=== PATIENT | female | born 1980 | race Caucasian/White ===

== ENCOUNTER 2022-02-10 12:12 | Emergency (ER) | payer OTHER, SELFPAY ==
--- NOTE | ~2022-02-10 | US_ITS ---
EXAMINATION: US BREAST DIAGNOSTIC, LEFT CLINICAL INFORMATION: 42-year-old female with history of bilateral breast implants placed in 2017. Left breast pain and tenderness. COMPARISON: None TECHNIQUE: Real-time scanning of the entire left breast was performed with scanning of the nipple areolar region. Limited comparison scanning of the right breast was performed. FINDINGS: The left breast parenchymal echotexture appears normal. No periimplant fluid collection is demonstrated. Visualized portions of implant are intact. There is no evidence of suspicious cystic or solid lesion or other significant sonographic finding in the left breast. No increased vascularity is noted in the left breast. Limited evaluation of the right breast is unremarkable. US/US breast LT complete IMPRESSION: No sonographic abnormality is demonstrated in the left breast. Specifically, there is no sonographic evidence of findings suggestive of mastitis or focal fluid collection. The visualized portions of the implant appear intact. ASSESSMENT: BI-RADS 2. Benign findings. RECOMMENDATIONS: Clinical correlation and clinical followup as appropriate. No prior breast imaging studies are available at this institution. Patient should return for mammographic followup as recommended on the report of most recent mammography exam.
--- NOTE | 2022-02-10 12:13 | ECG_ITS ---
Test Reason : CHEST PAIN Blood Pressure : / mmHG Vent. Rate : 063 BPM Atrial Rate : 063 BPM P-R Int : 134 ms QRS Dur : 078 ms QT Int : 426 ms P-R-T Axes : 059 062 031 degrees QTc Int : 435 ms Normal sinus rhythm Normal ECG No previous ECGs available Referred By: Generic ED Physician Electronically Signed By:DELGADO DAVILA
[2022-02-10 12:25] VITALS: BP 106/68; PULSE 67; RESP 16; TEMP 36.3; O2SAT 97; BMI 27.3
--- NOTE | 2022-02-10 13:12 | ED.CHESTPAIN ---
HPI - Chest Pain General Chief Complaint: Chest Pain Stated Complaint: chest pain Time Seen by Provider: 02/10/22 12:44 Source: patient Mode of arrival: ambulatory Limitations: no limitations History of Present Illness HPI narrative: Patient presents emergency department for evaluation of chest pain. She reports last night having substernal chest pain that radiates along the left side of her chest, reports that it is made worse with movement and deep inspiration. She initially thought this was muscular in nature but it feels worse than what she has typically used to, and that is not resolving. She has taken ibuprofen early this morning without relief. She presented to an urgent care for evaluation today, had an EKG and chest x-ray which were normal. She did have significant left-sided breast tenderness on exam therefore she was referred to the emergency department advising that she needed an ultrasound. Patient does report that she has had breast implants initially in late 1999s, with revision in 2015 or 2016. Denies fevers, chills, dizziness, lightheadedness palpitations, shortness of breath, difficulty breathing, nausea, vomiting, abdominal pain, rashes, redness the breast, nipple discharge. Reports at baseline her implants are asymmetric, however she does feel is of the left breast appears more swollen/ full than usual. She reports a maternal history of breast cancer. Denies any personal history of cancer, DVT/PE, recent surgery immobilization. She denies any precipitating injury. She is highly into exercise and fitness, but denies any recent increase or new exercise activity that may have provoked such significant pain. Related Data Allergies Allergy/AdvReac Type Severity Reaction Status Date / Time No Known Allergies Allergy Verified 02/10/22 13:02 Review of Systems Review of Systems: Constitutional : No Weight loss, No Fever, No Chills ENT/Mouth :? No sore throat, No Rhinorrhea Eyes: No Eye Pain, No Swelling Cardiovascular : pos Chest Pain, no SOB, no Dyspnea on Exertion, No Orthopnea, No Edema, No Palpitations Respiratory : No Cough, No Sputum Gastrointestinal : No Nausea, No Vomiting, No Diarrhea, No abdominal Pain, No Hematochezia, No Melena Genitourinary : No Dysuria, No Urinary Frequency Musculoskeletal : No joint pain, No Myalgias, No Joint Swelling Skin : No Skin Lesions, No rash Neuro : No Weakness, No Numbness, No Dizziness, No Headache Psych : No Anxiety/Panic, No Depression Heme/Lymph: No Bruising, No Lymphadenopathy Endocrine : No Polyuria, No Polydipsia Yes all other systems are reviewed and are negative [facility] Past Medical History Attestation statement: The following information was validated with the patient. Source: old records reviewed Social History Social History Advance Directives: No Advance Directives Information Provided: Yes Physical Exam Vital Signs: Vital Signs: Last Vital Signs Temp 97.4 F 02/10/22 12:25 Pulse 67 02/10/22 12:25 Resp 16 02/10/22 12:25 BP 106/68 02/10/22 12:25 Pulse Ox 97 02/10/22 12:25 O2 Del Method 02/10/22 12:25 BMI result Body Mass Index 27.3 Vital signs have been reviewed as normal and appeared to be correct. Blood pressure normal.? Heart rate normal.? Respiration rate normal. Temperature normal.? Oxygen saturation normal. Appearance: Alert.?Oriented to person, place and time. No acute distress.?Normal affect. Eyes: Pupils equal, round and reactive to light.? ENT: Pharynx normal.?? Neck: Normal inspection.? Neck supple.?? CVS: Heart sounds normal. Normal heart rate and rhythm.? Pulses normal.? Chest: Tenderness to palpation over the sternum, and left lateral chest wall. Left lateral breast tenderness palpation at 03:00 o'clock, no palpable lumps. No crepitus Respiratory: No respiratory distress.? Lung sounds clear to auscultation bilaterally?? Abdomen: Soft right upper quadrant tenderness on palpation, negative Lozoya sign. Normoactive bowel sounds. No pulsatile mass.?? Skin: Skin warm and dry.? Normal skin color.? ?? Extremities: No lower extremity edema.? No calf ttp? Neuro: Moves all extremities spontaneously. Sensation intact bilaterally. No motor deficits. Ambulates with normal steady gait. Course Course Course Narrative: Patient is a 42-year-old female with a past medical history bilateral breast implants presented to emergency department today for evaluation of chest pain we will, and chest tenderness. Previously evaluated in urgent care and referred here for further evaluation. She is overall well appearing, vital signs are stable, no apparent distress. Incidental finding of right upper quadrant abdominal tenderness on palpation, by patient's account this may be secondary to recent abdominal exercises, however in addition to her chief complaint of chest pain, at this time concerning for musculoskeletal pain, acid reflux, cholecystitis, cholelithiasis, fracture of breast implant. Less likely ACS has no risk factors however will obtain EKG and troponin. Wells, PERC negative, unlikely PE. Will obtain CBC, CMP, lipase, ultrasound of the left breast, and trial Toradol for pain. Disposition pending results. Reevaluation(s) Reevaluation #1: CBC reveals no leukocytosis, very mild normocytic anemia. CMP is overall unremarkable, very mildly elevated AST at 43, ALT, lipase normal, upper quadrant abdominal tenderness unlikely be secondary to cholecystitis or cholelithiasis, more likely muscular in nature, no reports of pain in this area. Troponin <3.5, EKG reveals normal sinus rhythm no acute ischemic findings, pain unlikely due to ACS. Time: 14:52 Reevaluation #2: Patient requesting to leave at this time, stating that she needs to get her children and has a [address] She declines to wait for the results of her ultrasound from Radiology. At this time feel that she is stable for discharge, advised that she would need to contact medical records or have her doctor's office request records to obtain ultrasound results for further evaluation. We discussed worsening signs and symptoms that she should return back to emergency department for, and have outpatient follow-up with her primary care provider within 1-2 days. She verbalizes understanding. Time: 15:07 [facility] - Chest Pain Medical Records Data Attestation: I reviewed the patient's medical records. Lab Data Attestation: I reviewed the patient's lab results. Result diagrams: 02/10/22 14:23 02/10/22 14:23 Labs: Lab Results 02/10/22 02/10/22 02/10/22 Range/Units 14:23 14:23 14:23 WBC 7.3 (4.8-10.8) X10*3/uL RBC 3.70 L (4.20-5.50) X10*6/uL Hgb 11.8 L (12.0-16.0) g/dl Hct 35.2 L (37.0-47.0) % MCV 95.1 (80.0-98.0) fL MCH 31.9 (27.0-33.0) pg MCHC 33.5 (31.0-35.0) g/dl RDW 11.7 (11.0-16.0) % Plt Count 179 (160-400) X10*3/uL MPV 10.9 (9.4-12.3) fL Immature Gran % (Auto) 0.4 (0.0-0.4) % Neut % (Auto) 55.8 (45-73) % Lymph % (Auto) 28.7 (20-40) % [place] % (Auto) 11.1 H (2-11) % Eos % (Auto) 3.3 (0-4) % Baso % (Auto) 0.7 (0-2) % Lymph # (Auto) 2.1 (1.2-4.9) X10*3/uL [place] # (Auto) 0.8 (0.1-1.2) X10*3/uL Eos # (Auto) 0.2 (0.0-0.4) X10*3/uL Baso # (Auto) 0.1 (0.0-0.2) X10*3/uL Abs Immat Gran (auto) 0.03 (0.00-0.03) X10*3/uL Absolute Neuts (auto) 4.1 (2.0-8.3) x10*3/uL Absolute Nucleated RBC 0.000 (0.0-0.012) X10*3/uL Nucleated RBC % (auto) 0.0 (0.0-0.2) /100WBC Sodium 139 (135-145) mmol/L Potassium 4.3 (3.3-5.1) mmol/L Chloride 108 (96-108) mmol/L Carbon Dioxide 24 (22-29) mmol/L Anion Gap 11 L (12-20) BUN 11 (9-16) mg/dL Creatinine 0.75 (0.5-1.4) mg/dL Estim Creat Clear Calc 109.5 Estimated GFR > 60 Random Glucose 92 (60-115) mg/dL Calcium 8.9 (8.4-10.2) mg/dL Magnesium 2.1 (1.6-2.6) mg/dL Total Bilirubin 0.2 (0.0-1.0) mg/dL AST 43 H (5-31) U/L ALT 24 (0-31) U/L Alkaline Phosphatase 49 (39-117) U/L Troponin I High Sens < 3.5 (<3.5-17.0) ng/L Total Protein 6.4 L (6.5-8.0) g/dL Albumin 4.2 (3.5-5.0) g/dL Lipase 36 (8-78) U/L Imaging Data US breast: Radiologist's impression: US/US breast LT complete IMPRESSION: No sonographic abnormality is demonstrated in the left breast. Specifically, there is no sonographic evidence of findings suggestive of mastitis or focal fluid collection. The visualized portions of the implant appear intact. ? ASSESSMENT: BI-RADS 2. Benign findings. ? RECOMMENDATIONS: Clinical correlation and clinical followup as appropriate. ? No prior breast imaging studies are available at this institution. Patient should return for mammographic followup as recommended on the report of most recent mammography exam. ECG Data ECG #1: Attestation: I personally reviewed and interpreted this ECG as follows: ECG interpretation date: 02/10/22 Prior ECG tracings: not available for review Interpretation: Rate: 63 Rhythm:? Normal sinus rhythm [place]:? Normal Normal P waves.? Normal MECHELLE.?? Normal QRS complex.?? ST T wave :??No ST elevation, no ST depression, no T-wave inversion qTC: 435 prior studies:? None available for review The study has been interpreted contemporaneously by me. Discharge Plan Discharge Clinical Impression: Chest pain, Mastodynia Patient Disposition: Home, Self-Care Instructions: Noncardiac Chest Pain (ED) Additional Instructions: As we discussed your blood work was unremarkable. Your EKG is normal. Your pain may be muscular in nature. The ultrasound of your left breast had not been read by Radiology by the time that you needed to leave the emergency department, as we discussed you may contact medical records or have your primary care doctor contact medical records to obtain results. Follow-up with your primary care doctor within 1-2 days. Return to emergency department for further evaluation of any new or worsening symptoms or concerns. Interventions: ED Discharge Assessment Last Done: 02/10/22 15:15 Discharge Date/Time: 02/10/22 15:15
[2022-02-10] MEDS: Ketorolac Tromethamine 30 MG/ML VIAL IM (14:18)
[2022-02-10 14:28] LABS: Basophils Absolute Auto 0.1 X10*3/uL (0.0-0.2); Basophils Percent Auto 0.7 % (0-2); Eosinophils Absolute Auto 0.2 X10*3/uL (0.0-0.4); Eosinophils Percent Auto 3.3 % (0-4); Hematocrit 35.2 % (37.0-47.0); Hemoglobin 11.8 g/dl (12.0-16.0); Imm Gran Abs Auto 0.03 X10*3/uL (0.00-0.03); Imm Gran Pct Auto 0.4 % (0.0-0.4); Lymphocytes Absolute Auto 2.1 X10*3/uL (1.2-4.9); Lymphocytes Percent Auto 28.7 % (20-40); MANUAL DIFF FLAG NO; Mean Corpuscular HGB Conc 33.5 g/dl (31.0-35.0); Mean Corpuscular Hemoglobin 31.9 pg (27.0-33.0); Mean Corpuscular Volume 95.1 fL (80.0-98.0); Mean Platelet Volume 10.9 fL (9.4-12.3); Monocytes Absolute Auto 0.8 X10*3/uL (0.1-1.2); Monocytes Percent Auto 11.1 % (2-11); Neutrophils Absolute Auto 4.1 x10*3/uL (2.0-8.3); Neutrophils Percent Auto 55.8 % (45-73); Platelet Count 179 X10*3/uL (160-400); Red Cell Distribution Width 11.7 % (11.0-16.0); White Blood Count 7.3 X10*3/uL (4.8-10.8)
[2022-02-10 14:49] LABS: Alanine Aminotransferase 24 U/L (0-31); Albumin Level 4.2 g/dL (3.5-5.0); Alkaline Phosphatase 49 U/L (39-117); Anion Gap 11 (12-20); Aspartate Amino Transferase 43 U/L (5-31); Blood Urea Nitrogen 11 mg/dL (9-16); Calcium 8.9 mg/dL (8.4-10.2); Carbon Dioxide 24 mmol/L (22-29); Chloride 108 mmol/L (96-108); Creatinine Clr Calc Pharmacy 109.5; Estimated Glomerular Filt Rate > 60; Glucose Random 92 mg/dL (60-115); Lipase 36 U/L (8-78); Magnesium 2.1 mg/dL (1.6-2.6); Potassium 4.3 mmol/L (3.3-5.1); Sodium 139 mmol/L (135-145); Total Protein 6.4 g/dL (6.5-8.0)
[2022-02-10 14:52] LABS: Bilirubin Total 0.2 mg/dL (0.0-1.0)
[2022-02-10 14:55] LABS: Troponin-I High Sensitivity < 3.5 ng/L (<3.5-17.0)
== END 2022-02-10 15:15 | disposition home or self-care (01) ==
PROVIDERS: Nurse Practitioner Family; Emergency Provider Emergency Medicine
DX: R07.89 Other chest pain (principal); N64.4 Mastodynia; Z79.899 Other long term (current) drug therapy
CPT/HCPCS: 36415; 76641; 80053; 83690; 83735; 84484; 85025; 93005; 96372; 99283; 99284; J1885